=== PATIENT | female | born 1990 ===

== ENCOUNTER 2020-12-14 13:28 | Outpatient (CLI) | payer OTHER ==
--- NOTE | 2020-12-14 15:35 | ULT ---
ULTRASOUND OBSTETRICAL COMPLETE: DATE: 12/14/2020 HISTORY: 30-year-old female "Z 34.82, encounter for supervision of other normal in second trimester. Comments: Cervical length, full anatomy, size and dates." FINDINGS: Maternal adnexa: Not visualized. number: [email or web address] lie: Cephalic Maternal cervix: 3 cm. Closed. Placenta: Anterior. No placenta previa. Amniotic fluid volume: LEONARD = 13 cm heart rate: 152 bpm The following anatomy is visualized, with no evidence of anomalies: Head, cerebellum, lateral ventricles, four-chamber heart, stomach, kidneys, cord insertion, bladder, cervical spine, thoracic spine, lumbar spine, sacrum, nose and lips, upper extremities, lower extremities, and three-vessel cord. biometry: Biparietal diameter (BPD): 5.0 cm 21 w 1 d Head circumference (HC): 18.5 cm 20 w 6 d Abdominal circumference (AC): 15.6 cm 20 w 6 d Femur length (FL): 3.4 cm 20 w 4 d Average ultrasound age (AUA): 20 w 6 d Estimated date of delivery (GABRIELA): 04/27/2021 Estimated weight (EFW): 371 g +/- 54 g IMPRESSION: 1) Live 2nd trimester intrauterine gestation. 2) Estimated gestational age of 20 weeks, 6 days 3) Vertex lie. 4) no anatomic abnormality identified.
== END 2020-12-14 13:29 | disposition home or self-care (01) ==
LOC: BICULT 13:28
PROVIDERS: ATTEND Family Medicine
DX: Z34.82 Encounter for supervision of other normal pregnancy, second trimester (principal); Z3A.20 20 weeks gestation of pregnancy
CPT/HCPCS: 76805